=== PATIENT | female | born 1965 | race Caucasian/White ===

== ENCOUNTER 2017-12-19 06:07 | Day surgery (SDC) | payer BC ==
[2017-12-17 14:32] LABS: BASOPHILS # (AUTO) 0.2 K/uL (0.00-0.22); EOSINOPHILS # (AUTO) 0.1 K/uL (0-0.4); HEMATOCRIT 41.5 % (36-48); HEMOGLOBIN 13.8 g/dL (12.0-16.0); LYMPHOCYTES # (AUTO) 2.3 K/uL (2.5-16.5); MEAN CORPUSCULAR HEMOGLOBIN 30 pg (27-31); MEAN CORPUSCULAR HGB CONC 33 g/dL (33-37); MEAN CORPUSCULAR VOLUME 91 fL (80-94); MONOCYTES # (AUTO) 0.5 K/uL (0.8-1.0); NEUTROPHILS # (AUTO) 5.1 K/uL (1.8-7.7); PLATELET COUNT (AUTO) 324 K/uL (140-450); RED BLOOD CELL COUNT(AUTO) 4.55 MIL/uL (4.20-5.40); RED CELL DISTRIBUTION WIDTH 12.8 % (11.6-13.7); WHITE BLOOD COUNT (AUTO) 8.2 K/uL (4.8-10.8)
[2017-12-17 14:49] LABS: ALBUMIN 3.6 g/dL (3.4-5.0); ANION GAP 16.5 (8-16); CARBON DIOXIDE 26.2 mmol/L (21-32); CREATININE 0.8 mg/dL (0.6-1.3); POTASSIUM 3.7 mmol/L (3.5-5.1); TOTAL BILIRUBIN 0.4 mg/dL (0.0-1.0)
[~2017-12-19] VITALS: Ht 157.5 cm; Wt 72.6 kg
[2017-12-19] MEDS ORDERED: BUPIVACAINE-MPF 0.25% 30 ML VIAL INJ ONE (07:19)
[2017-12-19] MEDS ORDERED: ONDANSETRON 4 MG/2 ML VIAL ONE (08:01)
[2017-12-19] MEDS ORDERED: PROPOFOL 200 MG/20 ML VIAL IV ONE (08:01)
[2017-12-19] MEDS ORDERED: SEVOFLURANE 250 ML BTL INH ONE (08:01)
[2017-12-19] MEDS ORDERED: DEXAMETHASONE 4 MG/ML VIAL ONE (08:01)
[2017-12-19] MEDS ORDERED: fentaNYL 0.05 MG/ML VIAL ONE (08:03)
[2017-12-19] MEDS ORDERED: MIDAZOLAM 2 MG/2 ML VIAL ONE (08:03)
[2017-12-19] MEDS ORDERED: MEPERIDINE 50 MG/ML SYR ONE (08:04)
[2017-12-19] MEDS ORDERED: LACTATED RINGERS 1,000 ML IV SCH (08:32)
[2017-12-19] MEDS ORDERED: ONDANSETRON 4 MG/2 ML VIAL IVP PRN (08:35)
[2017-12-19] MEDS ORDERED: MEPERIDINE 25 MG/ML SYR IVP PRN (08:35)
[2017-12-19] MEDS ORDERED: HYDROmorphone 1 MG/ML AMP IVP PRN (08:35)
[2017-12-19] MEDS ORDERED: diphenhydrAMINE 50 MG/ML VIAL IVP PRN (08:35)
[2017-12-19] MEDS ORDERED: HYDROmorphone PFS 2 MG/ML SYR IVP PRN (09:05)
[2017-12-19] MEDS ORDERED: MORPHINE SULFATE 4 MG/ML SYR IV PRN (09:05)
[2017-12-19] MEDS ORDERED: HYDROcodone/APAP 5/325 MG 1 TAB TAB PO PRN (09:05)
[2017-12-19] MEDS ORDERED: ONDANSETRON 4 MG/2 ML VIAL IV PRN (09:05)
[2017-12-19] MEDS ORDERED: MORPHINE SULFATE 2 MG/ML SYR IVP PRN (09:05)
== END 2017-12-19 10:40 | disposition home or self-care (01) ==
LOC: MDS 06:07 → MMU 06:08 → MDS 10:40
PROVIDERS: ATTEND Surgery
DX: N60.32 Fibrosclerosis of left breast (principal); N60.92 Unspecified benign mammary dysplasia of left breast; Z80.3 Family history of malignant neoplasm of breast; Z79.899 Other long term (current) drug therapy; Z98.890 Other specified postprocedural states
CPT/HCPCS: 19120; 36415; 71045; 80053; 85025; 87070; 87075; 87205; 88307; J0690; J1100; J2250; J2405; J2704; J3010; J3490; J7060; J7120; 93005; J2175

== ENCOUNTER 2019-08-17 07:21 | Inpatient (IN) | payer BC, MEDICAID ==
[~2019-08-17] VITALS: Ht 154.9 cm; Wt 75.4 kg
--- NOTE | 2019-08-17 07:26 | NUR ---
PT TAKEN TO BED 7
[2019-08-17 07:29] VITALS: BP 148/92
--- NOTE | 2019-08-17 07:59 | NUR ---
PT TO ED WITH C/O L SIDED BREAST PAIN AND LUMP REPORTING DISCHARGE. NO INJURY/TRAUMA NOTED. SENT BY PMD FOR EVAL. IN BED FOR MD HERNANDEZ.
[2019-08-17] MEDS ORDERED: THYR60TA7 PO (08:11)
[2019-08-17 08:14] LABS: BASOPHILS % (AUTO) 0.6 % (0.0-2.0); EOSINOPHILS # (AUTO) 0.2 K/uL (0-0.4); EOSINOPHILS % (AUTO) 2.3 % (0.0-4.0); HEMATOCRIT 42.5 % (36-48); HEMOGLOBIN 14.3 g/dL (12.0-16.0); LYMPHOCYTES # (AUTO) 1.8 K/uL (2.5-16.5); LYMPHOCYTES % (AUTO) 23.1 % (20.5-51.1); MEAN CORPUSCULAR HEMOGLOBIN 32 pg (27-31); MEAN CORPUSCULAR HGB CONC 34 g/dL (33-37); MEAN CORPUSCULAR VOLUME 95.2 fL (80-94); MONOCYTES # (AUTO) 0.5 K/uL (0.8-1.0); MONOCYTES % (AUTO) 6.4 % (1.7-9.3); NEUTROPHILS # (AUTO) 5.1 K/uL (1.8-7.7); NEUTROPHILS % (AUTO) 67.6 % (42.2-75.2); PLATELET COUNT (AUTO) 356 K/uL (140-450); RED BLOOD CELL COUNT(AUTO) 4.47 MIL/uL (4.20-5.40); RED CELL DISTRIBUTION WIDTH 12.7 % (11.6-13.7); WHITE BLOOD COUNT (AUTO) 7.6 K/uL (4.8-10.8)
[2019-08-17 08:15] LABS: APPEARANCE,URINE CLEAR (CLEAR); BILIRUBIN,URINE NEGATIVE (NEGATIVE); BLOOD, URINE NEGATIVE (NEGATIVE); COLOR,URINE YELLOW (YELLOW); LEUKOCYTE ESTERASE ,URINE 1+ (NEGATIVE); NITRITE, URINE NEGATIVE (NEGATIVE); UGLUCOSE NEGATIVE (NEGATIVE)
[2019-08-17] MEDS ORDERED: NACL 0.9% 1,000 ML IV SCH (08:27)
[2019-08-17] MEDS ORDERED: DOCUSATE SODIUM 100 MG GELCAP PO PRN (08:30)
[2019-08-17] MEDS ORDERED: ACETAMINOPHEN 325 MG TAB PO PRN (08:30)
[2019-08-17] MEDS ORDERED: ONDANSETRON 4 MG/2 ML VIAL IM/IVP PRN (08:30)
[2019-08-17 08:31] LABS: RBC,URINE NONE SEEN /HPF (0-5); WBC,URINE 0-5 /HPF (0-5)
[2019-08-17 08:45] VITALS: BP 134/83
--- NOTE | 2019-08-17 08:45 | NUR ---
RECEIVED PT FROM ER NURSE VIA WHEELCHAIR, PT IS AWAKE AND ALERT AND ORIENTED, AMBULATED TO THE BED, PERIPHERAL LINE ON THE LEFT AC G. 20 ON SALINE LOCK, PT DENIES PAIN AND NO SIGN OF DISTRESS NOTED. WILL MONITOR PT.
--- NOTE | 2019-08-17 08:45 | NUR ---
Patient will be admitted to care of DR LAY. Admited to MED/SURG. Will go to room 125-B. Belongings list completed. Report to YOCASTA BALLESTEROS.
[2019-08-17 09:00] LABS: PROTHROMBIN TIME 9.8 secs (10.8-13.4)
[2019-08-17 09:14] LABS: CHOL/HDL RATIO 3.6 (1-4.5); FREE T4 (FREE THYROXINE) 0.69 ng/dL (0.76-1.46); MAGNESIUM 2.2 mg/dL (1.8-2.4); PHOSPHORUS 3.4 mg/dL (2.5-4.9); THYROID STIMULATING HORMONE 0.97 uIU/mL (0.34-3.74)
[2019-08-17 09:14] LABS: BARBITURATE, URINE NEG. ng/ml (NEG <=200); BENZODIAZEPINE, URINE NEG. ng/mL (NEG <=200); CANNABINOID, URINE NEG. ng/mL (NEG <=50); COCAINE, URINE NEG. ng/mL (NEG <=300); OPIATE, URINE NEG. ng/mL (NEG <=2000); PHENCYCLIDINE SCREEN,URINE NEG. ng/mL (NEG <=25)
[2019-08-17 09:32] LABS: ALBUMIN 3.9 g/dL (3.4-5.0); ANION GAP 15.2 (8-16); CARBON DIOXIDE 24.8 mmol/L (21-32); CREATININE 0.9 mg/dL (0.6-1.3); TOTAL BILIRUBIN 0.4 mg/dL (0.0-1.0)
--- NOTE | 2019-08-17 10:18 | NUR ---
IVF OF NS WAS STARTED TO PT NOW FOR A RATE OF 60ML/HR. WILL MONITOR PT.
--- NOTE | 2019-08-17 10:25 | NUR ---
MRSA SWWAB DONE TO PT NOW AND SAMPLE WAS SENT TO LAB.
--- NOTE | 2019-08-17 11:30 | NUR ---
PT IS AWAKE AND VERBALIZED A TOLERABLE PAIN, WA PLACED ON NPO EXCEPT MEDS. WILL MONITOR PT.
[2019-08-17] MEDS: BUPIVACAINE-MPF 0.25% 30 ML VIAL INJ ONE ×2 (13:01→15:16)
[2019-08-17] MEDS ORDERED: ceFAZolin 1,000 MG VIAL ONE (13:03)
--- NOTE | 2019-08-17 13:10 | NUR ---
PT IS OFF THE UNIT NOW FOR A INCISION AND DRAINAGE PROCEDURE OF THE LEFT BREAST. P0T IS STABLE AT THIS TIME.
[2019-08-17] MEDS ORDERED: PROPOFOL 200 MG/20 ML VIAL IV ONE (13:39)
[2019-08-17] MEDS ORDERED: DEXAMETHASONE 4 MG/ML VIAL ONE (13:39)
[2019-08-17] MEDS ORDERED: KETOROLAC 30 MG/ML VIAL ONE (13:39)
[2019-08-17] MEDS ORDERED: ONDANSETRON 4 MG/2 ML VIAL ONE (13:39)
[2019-08-17] MEDS ORDERED: SEVOFLURANE 250 ML BTL INH ONE (13:39)
[2019-08-17] MEDS ORDERED: MIDAZOLAM 2 MG/2 ML VIAL ONE (13:42)
[2019-08-17] MEDS ORDERED: fentaNYL 0.05 MG/ML VIAL ONE (13:43)
[2019-08-17] MEDS ORDERED: MEPERIDINE 25 MG/ML SYR ONE (13:43)
[2019-08-17] MEDS: LACTATED RINGERS 1,000 ML IV SCH ×2 (14:12→22:32)
[2019-08-17] MEDS ORDERED: ONDANSETRON 4 MG/2 ML VIAL IVP PRN (14:15)
[2019-08-17] MEDS ORDERED: MEPERIDINE 25 MG/ML SYR IVP PRN (14:15)
[2019-08-17] MEDS ORDERED: diphenhydrAMINE 50 MG/ML VIAL IVP PRN (14:15)
[2019-08-17] MEDS ORDERED: HYDROmorphone 1 MG/ML AMP IVP PRN ×2 (14:15→15:10)
[2019-08-17] MEDS ORDERED: MEPERIDINE 50 MG/ML SYR ONE (14:40)
[2019-08-17] MEDS ORDERED: HYDROcodone/APAP 5/325 MG 1 TAB TAB PO PRN (15:10)
[2019-08-17] MEDS ORDERED: ONDANSETRON 4 MG/2 ML VIAL IV PRN (15:10)
[2019-08-17] MEDS ORDERED: MORPHINE SULFATE 2 MG/ML SYR IVP PRN (15:10)
--- NOTE | 2019-08-17 15:47 | NUR ---
PT CAME BACK TO ROOM NOW AND L141/84, PULSE IS73, TEMP. IS 97.8EFT BREAST WAS COVERED WITH DRESSING WITH PACKING, V/S TAKEN AND BP IS 141/84, PULSE IS 73, TEMP. IS 97.8, O2 SATURATION IS 96% AND RESPIRATION IS 18/MIN. WILL MONITOR PT.
[2019-08-17 16:00] VITALS: BP 141/84
[2019-08-17] MEDS ORDERED: KETOROLAC 15 MG/ML VIAL IVP PRN (16:05)
--- NOTE | 2019-08-17 17:05 | NUR ---
PT IS AWAKE AND PAIN MEDICATION WAS GIVEN VIA IV PUSH, WILL MONITOR AND RE-ASSESS PAIN.
[2019-08-17] MEDS: MORPHINE SULFATE 4 MG/ML SYR IV PRN (17:06)
--- NOTE | 2019-08-17 19:20 | NUR ---
RECEIVED REPORT FORM EZRA ALARCON NURSE AT BEDSIDE FOR CONTINUITY OF CARE, PT IN STABLE CONDITION. Addendum: 08/17/19 at 2259 by Lenore Cisneros RN RECEIVED REPORT FORM LESLI WOLFESCIVIS MUNGUIA
--- NOTE | 2019-08-17 19:20 | NUR ---
ENDORSED PT TO GLASS TECHNOLOGIST NURSEFLORINA FOR CONTINUITY OF CARE.
[2019-08-17 20:00] VITALS: BP 106/64
--- NOTE | 2019-08-17 20:00 | NUR ---
PT IN LOW BED WITH SIDE RAILS UP X2 . V/S FOLLOWS T 97.4 P 76 R 18 B/P 125/80 02 94% ON ROOM AIR. DRESSING ON LEFT CHEST INTACT WITH NO DRAINAGE NOTED. PT DENIES PAIN AT THIS TIME.
--- NOTE | 2019-08-17 21:00 | NUR ---
PT ABLE TO AMBULATE INDEPENDENTLY TO TOILET AND BACK. WITH A STEADY GAIT. ZOSYN HUNG AND IS RUNNING AT 100MLS/HR ORDERED. PT SAYS PAIN IS A 2 NOW BUT TOLERABLE. WILL CONTINUE TO MONITOR FOR PAIN CONTROL.
[2019-08-17] MEDS: PIPERACILLIN/TAZOBACTAM 3.375 GM in DEXTROSE 5% 50 ML IV SCH (21:16)
[2019-08-18] VITALS: BP 106/64
--- NOTE | 2019-08-18 | NUR ---
PT IN BED AWAKE, SHE DENIES PAIN AT THIS TIME. V/S FOLLOWS T 97.4 P 78 R 18 B/P 121/46 02 96% ON ROOM AIR. ZOSYN HUNG AND IS RUNNING AT 100MLS/HR ORDERED. IV SITE INTACT AND FLUSHED PATENT.
[2019-08-18] MEDS: PIPERACILLIN/TAZOBACTAM 3.375 GM in DEXTROSE 5% 50 ML IV SCH ×3 (05:00→20:40)
[2019-08-18 06:41] LABS: ANION GAP 12.2 (8-16); CREATININE 0.7 mg/dL (0.6-1.3); POTASSIUM 4.2 mmol/L (3.5-5.1)
[2019-08-18] MEDS: LEVOTHYROXINE 0.05 MG TAB PO SCH (07:00)
[2019-08-18] MEDS: LACTATED RINGERS 1,000 ML IV SCH (07:08)
[2019-08-18 07:13] LABS: BASOPHILS % (AUTO) 0.1 % (0.0-2.0); HEMOGLOBIN 12.1 g/dL (12.0-16.0); LYMPHOCYTES # (AUTO) 1.1 K/uL (2.5-16.5); MEAN CORPUSCULAR HEMOGLOBIN 31 pg (27-31); MEAN CORPUSCULAR HGB CONC 33 g/dL (33-37); MEAN CORPUSCULAR VOLUME 95.7 fL (80-94); MONOCYTES # (AUTO) 0.3 K/uL (0.8-1.0); NEUTROPHILS # (AUTO) 9.6 K/uL (1.8-7.7); NEUTROPHILS % (AUTO) 86.9 % (42.2-75.2); PLATELET COUNT (AUTO) 332 K/uL (140-450); RED BLOOD CELL COUNT(AUTO) 3.86 MIL/uL (4.20-5.40); RED CELL DISTRIBUTION WIDTH 12.5 % (11.6-13.7); WHITE BLOOD COUNT (AUTO) 11.1 K/uL (4.8-10.8)
[2019-08-18 08:00] VITALS: BP 130/78
--- NOTE | 2019-08-18 08:21 | NUR ---
PATIENT HAS BEEN SCREENED AND CATEGORIZED MODERATE NUTRITION RISK. PATIENT WILL BE SEEN WITHIN 3-5 DAYS OF ADMISSION. 08/19/19 08/21/[address]
--- NOTE | 2019-08-18 10:50 | NUR ---
REFERRAL FAXED TO [facility] AT [phone]. WILL FOLLOW UP.
[2019-08-18] MEDS: MORPHINE SULFATE 4 MG/ML SYR IV PRN (13:12)
--- NOTE | 2019-08-18 13:45 | NUR ---
WOUND CARE EVALUATION NOTES: REASON FOR EVALUATION: S/P I&D LEFT BREAST WOUND ASSESSMENT DONE ON WITH THIS 53 Y/O FEMALE PATIENT ADMITTED TO [facility] WITH INITIAL DIAGNOSIS OF MASTITIS. DAUGHTER AT BED SIDE, WOUND CARE TEACHING GIVEN AND BOTH PT. AND DAUGHTER VERBALIZES UNDERSTANDING. POC DISCUSSED, ALL QUESTIONS ANSWERED.RECOMMEND HOME HEALTH WOUND CARE TO FOLLOW UP WOUND CARE. INTEGUMENTARY: -SURGICAL WOUND TO LEFT BREAST 6X12X2 CM UNDERMINING 12-2 OCLOCK WITH 3CM, WOUND BED 100% GRANULATING TISSUE WITH MUSCLE AND FAT TISSUE OBSERVED, SMALL AMOUNT SEROSANGUINEOUS BLEEDING, NO ODOR, WOUND EDGE WELL DEFINED, IRREGULAR SHAPE, WITH ADELAIDA-WOUND SKIN DRY AND INTACT. RECOMMENDATIONS: -HOME HEALTH FOLLOW UP WITH WOUND CARE UPON DISCHARGE AND RE-EVALUATION WEEKLY. -CLEANSE SURGICAL WOUND TO LEFT BREAST WITH NS, PAT DRY, PACK A FULL ROLL OF MOIST KERLIX AGNES FAN FOLDED, AND COVER WITH DRY DRESSING CHANGE QD AND PRN IF SOILING. -KEEP AREA DRY AND CLEAN AT ALL TIME -PLEASE FOLLOW UP WITH SURGEON/ REGISTER IN CHANCERY 7-10 DAYS AFTER DISCHARGED PLEASE CONTACT WOUND CARE NURSE FOR ANY QUESTIONS AND CHANGES IN SKIN CONDITION.
--- NOTE | 2019-08-18 19:30 | NUR ---
RECEIVED PATIENT FROM REGISTRY NURSE. PATIENT IS AOX4, IV L. AC 20 G, PATENT AND INTACT, FLUIDS INFUSING, ON ROOM AIR, BREATHING IS EVEN AND UNLABORED, SKIN IS INTACT WITH SURGICAL DRESSING ON LEFT BREAST, NO SIGNS OF DISTRESS NOTED, DENIES ANY PAIN AT THE MOMENT, FAMILY MEMBERS AT BEDSIDE, CALL LIGHT WITHIN REACH, BED ON LOW POSITION, WILL CONTINUE TO MONITOR.
--- NOTE | 2019-08-18 21:00 | NUR ---
AWAKE. DUE ANTIBIOTICS GIVEN IVPB. NO C/O ANY PAIN NOTED.
--- NOTE | 2019-08-18 22:00 | NUR ---
MADE ROUNDS. PT ASLEEP. NO S/S OF ANY DISCOMFORT NOTED. WILL CONTINUE TO MONITOR.
[2019-08-19 00:30] VITALS: BP 125/74
--- NOTE | 2019-08-19 00:30 | NUR ---
MADE ROUNDS. VITAL SIGNS STABLE. NO C/O ANY DISCOMFORT NOR PAIN NOTED. WILL CONTINUE TO MONITOR.
--- NOTE | 2019-08-19 02:33 | NUR ---
PATIENT IS SLEEPING, BREATHING IS UNLABORED AND EVEN, CALL LIGHT WITHIN REACH, WILL CONTINUE TO MONITOR.
--- NOTE | 2019-08-19 05:00 | NUR ---
BLOOD WAS DRAWN THIS AM BY LAB. WILL FOLLOW UP RESULT.
[2019-08-19] MEDS: PIPERACILLIN/TAZOBACTAM 3.375 GM in DEXTROSE 5% 50 ML IV SCH (05:07)
[2019-08-19] MEDS: LEVOTHYROXINE 0.05 MG TAB PO SCH (05:53)
[2019-08-19 06:21] LABS: ANION GAP 12.7 (8-16); CARBON DIOXIDE 26.3 mmol/L (21-32); CREATININE 0.8 mg/dL (0.6-1.3)
--- NOTE | 2019-08-19 06:37 | NUR ---
GAVE PATIENT SYNTHROID MEDICATION. PATIENT TOLERATED WELL. NO SIGNS OF DISTRESS NOTED, WILL CONTINUE TO MONITOR.
[2019-08-19 06:39] LABS: BASOPHILS # (AUTO) 0.1 K/uL (0.00-0.22); BASOPHILS % (AUTO) 0.7 % (0.0-2.0); EOSINOPHILS # (AUTO) 0.1 K/uL (0-0.4); EOSINOPHILS % (AUTO) 0.9 % (0.0-4.0); HEMATOCRIT 36.9 % (36-48); HEMOGLOBIN 12.1 g/dL (12.0-16.0); LYMPHOCYTES # (AUTO) 3.6 K/uL (2.5-16.5); LYMPHOCYTES % (AUTO) 34.9 % (20.5-51.1); MEAN CORPUSCULAR HEMOGLOBIN 31 pg (27-31); MEAN CORPUSCULAR HGB CONC 33 g/dL (33-37); MONOCYTES # (AUTO) 0.5 K/uL (0.8-1.0); MONOCYTES % (AUTO) 4.8 % (1.7-9.3); NEUTROPHILS % (AUTO) 58.7 % (42.2-75.2); PLATELET COUNT (AUTO) 350 K/uL (140-450); RED BLOOD CELL COUNT(AUTO) 3.84 MIL/uL (4.20-5.40); RED CELL DISTRIBUTION WIDTH 12.8 % (11.6-13.7); WHITE BLOOD COUNT (AUTO) 10.3 K/uL (4.8-10.8)
[2019-08-19] MEDS ORDERED: AMOX-999 PO (06:39)
--- NOTE | 2019-08-19 07:21 | NUR ---
ENDORSED PT IN STABLE CONDITION TO AM NURSE. FOR CONTINUITY OF CARE.
--- NOTE | 2019-08-19 07:22 | NUR ---
RECEIVED ENDORSEMENT FROM PAYABLE PROCESSOR NURSE. PATIENT IS AAOX4, MONTSERRATIAN SPEAKING. RESPIRATIONS ARE EVEN AND UNLABORED ON ROOM AIR. LEFT AC 20G IV INTACT, PATENT, AND INFUSING IVF. PLAN OF CARE WAS REVIEWED WITH PATIENT, PATIENT VERBALIZED UNDERSTANDING. SAFETY MEASURES IN PLACE, CALL LIGHT WITHIN REACH.
[2019-08-19 08:00] VITALS: BP 129/81
--- NOTE | 2019-08-19 08:00 | NUR ---
VS OBTAINED. PATIENT DENIES ANY PAIN. NO OTHER NEEDS AT THIS TIME.
--- NOTE | 2019-08-19 10:00 | NUR ---
MET WITH THE PATIENT AND THE PATIENT'S DAUGHTER STEPHANIE REGARDING DC PLAN WITH HOME HEALTH FOR WOUND CARE. I INFORMED THEM THAT [facility] ACCEPTED THE PATIENT AND START THEIR VISIT TOMORROW. DR. ROBERTS AT BEDSIDE AND WAS RECOMMENDING WOUND VAC PENDING INSURANCE APPROVAL. INFORMED HIM THAT PATIENT IS HOSPITAL PRESUMPTIVE. INFORMED HIM THAT I WILL INQUIRE IF HOW MUCH THAT DAILY RENTAL FOR PRIVATE PAY. CONTACTED [facility] AT [phone], ABLE TO SPEAK TO TAYLOR REGARDING PRIVATE RENTAL QUOTE. SHE STATED IT IS $125.50/DAY ALL INCLUSIVE, BUT THEY NEED 2 WEEKS OF PAYMENT IN ADVANCE BY CREDIT CARD. CONTACTED PATIENT'S DAUGHTER STEPHANIE BERGER AT [phone], INFORMED HER OF WOUND VAC DAILY RENTAL. SHE STATED THAT IT IS VERY EXPENSIVE AND WILL JUST CONTINUE WITH WOUND CARE DRESSING. I ALSO INFORMED HER THAT HOME HEALTH WILL COME IN DAILY FOR THE FIRST WEEK AND WILL TEACH HER TO DO DRESSING CHANGES IN BETWEEN. ABLE TO VERBALIZE UNDERSTANDING. [facility] [phone] REGARDING PATIENT WILL BE DISCHARGING TODAY. SHE STATED WILL SEE THE PATIENT TOMORROW 08/20/19.
--- NOTE | 2019-08-19 10:30 | NUR ---
DISCHARGE INSTRUCTIONS PROVIDED. ALL QUESTIONS AND CONCERNS ADDRESSED. IV WAS REMOVED,CANNULA INTACT WITH MINIMAL BLEEDING. WOUND CARE WAS DONE, PATIENT TOLERATED WELL. DISCHARGE PICTURE OBTAINED. PATIENT TO BE DISCHARGED HOME.
--- NOTE | 2019-08-19 10:35 | NUR ---
PATIENT AMBULATED OFF UNIT WITH STEADY GAIT. ALL BELONGINGS LEFT WITH PATIENT. PATIENT IS STABLE AT THIS TIME.
[2019-08-19] MEDS ORDERED: GAUZE TP SCH (13:00)
== END 2019-08-19 10:40 | disposition home health service (06) | DRG 363 ==
LOC: MED 07:21 → MMU 08:27
PROVIDERS: ADMIT General Practice; ATTEND General Practice
PROC: 0H9U0ZZ Drainage of Left Breast, Open Approach (ICD-10-PCS; 2019-08-17)
PROC: 0HBU0ZZ Excision of Left Breast, Open Approach (ICD-10-PCS; principal; 2019-08-17 15:05)
DX: N61.1 Abscess of the breast and nipple (principal); E03.9 Hypothyroidism, unspecified; N60.12 Diffuse cystic mastopathy of left breast; E78.5 Hyperlipidemia, unspecified; I10 Essential (primary) hypertension
CPT/HCPCS: 36415; 71045; 76641; 80048; 80053; 80305; 81001; 81025; 82150; 82550; 83036; 83605; 83690; 83735; 83880; 84100; 84439; 84443; 85025; 85610; 85730; 87070; 87075; 87081; 87086; 87205; 88305; 93005; 99285; J0690; J1100; J1885; J2175; J2250; J2270; J2405; J2543; J2704; J3010; J3490; J7030; J7060; Q0092